=== PATIENT | male | born 1965 | race Caucasian/White ===

== ENCOUNTER 2025-02-03 09:00 | Day surgery (SDC) | payer BC, SELFPAY ==
[2025-02-02 13:29] VITALS: BMI 34.7
[2025-02-03] VITALS (9 sets, daily range): BP systolic 102–160; BP diastolic 74–110; PULSE 63–70; RESP 9–19; TEMP 36.4–36.8; O2SAT 94–98; BMI 34.2
[2025-02-03] MEDS: SODIUM CHLORIDE 0.9% 500 ML 500 ML 20 ML IV (11:11)
[2025-02-03] MEDS: fentaNYL CIT INJ 50 mCg/ML AMP 2ML (ASD USE ONLY) IV (11:11)
[2025-02-03] MEDS: DiphenhydrAMINE INJ 50 MG/ML VIAL 25 MG IV (11:13)
[2025-02-03] MEDS: MIDAZOLAM INJ 1 MG/ML VIAL 2 ML (ASD USE ONLY) 2 MG IV (11:15)
== END 2025-02-03 12:26 | disposition home or self-care (01) ==
PROVIDERS: PCP Internal Medicine; Referring Provider Specialist; Visit Provider Specialist
PROC: 0DBE8ZX Excision of Large Intestine, Via Natural or Artificial Opening Endoscopic, Diagnostic (ICD-10-PCS; CPT 45380; principal; 2025-02-03 11:15)
DX: Z12.11 Encounter for screening for malignant neoplasm of colon (principal); K64.9 Unspecified hemorrhoids; K57.30 Diverticulosis of large intestine without perforation or abscess without bleeding
CPT/HCPCS: 45378; J1200; J2250; J3010; J7040